=== PATIENT | female | born 2000 | race Hispanic/Latino ===

== ENCOUNTER 2025-07-23 14:21 | Emergency (ER) | payer SELFPAY ==
[~2025-07-23] VITALS: Ht 170.2 cm; Wt 81.2 kg
[2025-07-23 15:20] LABS: BASOPHILS % 0.3 % (0.0-1.0); EOSINOPHILS % 0.1 % (0.0-6.0); LYMPHOCYTES % 20.0 % (18.0-39.1); MONOCYTES % 5.2 % (4.4-11.3); NEUTROPHILS % 74.1 % (38.7-80.0); RED CELL DISTRIBUTION WIDTH 12.0 % (11.7-14.4)
[2025-07-23] MEDS: SODIUM CHLORIDE 0.9% 1000ML 1,000 ML IV STA (15:34)
[2025-07-23] MEDS: HALOPERIDOL LACTATE 5 MG/ML VIAL IV STA (15:37)
[2025-07-23] MEDS: DICYCLOMINE HCL 20 MG/2 ML VIAL IM ONE (15:38)
[2025-07-23 15:42] LABS: EST GLOMERULAR FILTRATION RATE 110.0 ML/MIN (>=60)
[2025-07-23 15:47] LABS: LEUKOCYTE ESTERASE ,URINE MODERATE (NEGATIVE); PROTEIN,URINE DIPSTICK NEGATIVE (NEGATIVE); URINE UROBILINOGEN 0.2 mg/dL (0.2 - 1)
[2025-07-23 15:50] LABS: AMPHETAMINES SCREEN,URINE POSITIVE (NEGATIVE); CANNABINOIDS SCREEN,URINE NEGATIVE (NEGATIVE); COCAINE SCREEN,URINE NEGATIVE (NEGATIVE); METHADONE SCREEN, URINE NEGATIVE (NEGATIVE); OPIATES SCREEN,URINE NEGATIVE (NEGATIVE)
[2025-07-23 16:01] LABS: EPITHELIAL CELLS,URINE MODERATE /LPF
[2025-07-23] MEDS ORDERED: PROMETHAZINE HC25 M1 PO ×2 (16:39→19:08)
[2025-07-23] MEDS ORDERED: CEFDINIR300 MG PO (16:40)
[2025-07-23 17:44] VITALS: PULSE 89; RESP 16; TEMP 97.9
[2025-07-23] MEDS ORDERED: OMEPRAZOLE40 MG PO ×2 (17:52→19:08)
[2025-07-23 20:27] VITALS: BP 131/93; PULSE 70; RESP 20; TEMP 97.9; O2SAT 97
== END 2025-07-23 20:32 | disposition home or self-care (01) ==
LOC: ER 14:26
DX: R10.11 Right upper quadrant pain (principal); R11.2 Nausea with vomiting, unspecified; R19.7 Diarrhea, unspecified
CPT/HCPCS: 36415; 74177; 80053; 80307; 81001; 83690; 84702; 85025; 99284; J0500; J1630; J2470; J7030